=== PATIENT | female | born 1950 | race Caucasian/White ===

== ENCOUNTER → 2017-03-27 13:13 | Outpatient (CLI) | payer MEDICARE, BC | END | disposition home or self-care (01) | LOC: D.US 13:13 | DX: D50.9 Iron deficiency anemia, unspecified (principal); R60.0 Localized edema ==

== ENCOUNTER → 2018-08-21 18:14 | Outpatient (CLI) | payer MEDICARE, BC | END | disposition home or self-care (01) | LOC: D.MAMMO 13:30 | DX: Z12.31 Encounter for screening mammogram for malignant neoplasm of breast (principal) ==